=== PATIENT | female | born 1965 | race Caucasian/White ===

== ENCOUNTER 2018-01-05 06:52 | Emergency (ER) | payer OTHER ==
[~2018-01-05 06:52] MED LIST changes: -DOXY-179 PO
--- NOTE | 2018-01-05 07:38 | ER Report ---
History and Physical Time Seen By MD: 07:38 Hx. of Stated Complaint: ems 1 ntg @653 4 baby asa @652 labs @652 chest pain for 6 hours. woke up with it. centers under left breast and moves up to left shoulder HPI/ROS 52-year-old female with no significant medical problems presents to the emergency department with onset of left sided chest pain that started at 0200 today. The pain awoke her from sleep. She also reports a cough over the past 1- 2 weeks. She has been busy getting ready for her daughter's recent wetting. She denies fever chills. The pain is worse when she moves or takes a deep breath. She has never had any cardiac problems or chest pain in the past. He does have a family history of her mom having a PE. She is unable to go back to sleep last night, so has been walking around trying to wean herself of the chest pain for a few hours. She was given aspirin and nitroglycerin spray by the paramedics in route. She is feeling somewhat better after that treatment. No other complaints. Remainder of the 14 system rev: Yes Allergies: Coded Allergies: oxaprozin (Unverified Allergy, Mild, RASH, 01/05/18) Sulfa (Sulfonamide Antibiotics) (Verified Allergy, Unknown, FLU LIKE SYMPTOMS, 01/05/18) Uncoded Allergies: SEASONAL ALLERGIES (Allergy, Mild, NASAL SYMPTOMS, 02/14/14) Home Meds Active Scripts Pantoprazole Sodium (PANTOPRAZOLE SODIUM) 20 Mg Tablet.dr, 1 TAB PO QDAY, #90 TAB.SR 6 Refills Prov:LATRICE HAYDEN MD 12/19/16 Ibuprofen (IBUPROFEN) 800 Mg Tablet, 1 TAB PO Q8H for PAIN, #30 TAB 0 Refills Prov:LITTLE MUNIZ MD 02/16/14 Reported Medications Fexofenadine Hcl/Pseudoephedr (ED-D 24 HOUR TABLET) 1 Each Tabsr, 1 TAB PO QDAY 02/14/14 Calcium Carbonate (CALCIUM) 500 Mg Tablet, 500 MG PO 05/04/13 Multivitamin (DAILY VITAMIN) 1 Each Tablet, 1 EACH PO 05/04/13 Levothyroxine Sodium (LEVOTHYROXINE SODIUM) 50 Mcg Tablet, 50 MCG PO QDAY 05/04/13 Discontinued Reported Medications Krill Oil (KRILL OIL) 500 Mg Capsule, 500 MG PO DAILY, CAPSULE 02/14/14 Red Yeast Rice (RED YEAST RICE) 600 Mg Tablet, 600 MG PO 06/01/13 [place]-3 Fatty Acids (FISH OIL) 300 Mg Capsule, 300 MG PO, CAPSULE 05/04/13 Discontinued Scripts Hydromorphone Hcl (DILAUDID) 2 Mg Tablet, 2 MG PO Q2-4H for PAIN, #30 0 Refills Prov:LITTLE MUNIZ MD 02/16/14 Reviewed Nurses Notes: Yes Old Medical Records Reviewed: Yes Hx Smoking: No Smoking Status: Never Smoker Exposure to Second Hand Smoke?: No Hx Substance Use Disorder: No Hx Alcohol Use: No Constitutional Vital Sign - Last 24 Hours 01/05/18 01/05/18 01/05/18 01/05/18 06:52 06:57 07:01 07:07 Temp 99.1 Pulse ??? 86 85 Resp 18 13 B/P (MAP) 142/98 142/98 (113) Pulse Ox 95 96 O2 Delivery Nasal Cannula 01/05/18 01/05/18 01/05/18 01/05/18 07:19 07:22 07:30 07:37 Pulse 80 79 Resp 8 10 B/P (MAP) 136/96 (109) Pulse Ox 97 97 O2 Flow Rate 2.0 01/05/18 01/05/18 01/05/18 01/05/18 07:52 08:00 08:07 08:12 Pulse 74 75 76 Resp 19 13 15 B/P (MAP) 146/101 (116) Pulse Ox 97 96 96 01/05/18 01/05/18 01/05/18 01/05/18 08:27 08:30 08:42 08:57 Pulse 73 ??? 67 Resp 12 14 B/P (MAP) 149/94 (112) 152/102 (119) Pulse Ox 94 97 99 01/05/18 01/05/18 01/05/18 01/05/18 09:00 09:12 09:27 09:30 Pulse 68 68 Resp 15 20 B/P (MAP) ???/??? (1665) ???/??? (1665) Pulse Ox 98 99 01/05/18 01/05/18 09:42 09:57 Pulse 78 72 Resp 18 24 Pulse Ox 99 98 Physical Exam General Appearance: The patient is alert, has no immediate need for airway protection and no current signs of toxicity. Eyes: Pupils equal and round no injection. Respiratory: Chest is TTP at the left lower anterior chest which reproduces the symptoms, lungs are clear to auscultation. Cardiac: regular rate and rhythm Gastrointestinal: Abdomen is soft and non tender, no masses, bowel sounds normal. Neck: Neck is supple and non tender. Extremities have full range of motion and are non tender. Skin: No rashes or lesions. DIFFERENTIAL DIAGNOSIS: After history and physical exam differential diagnosis was considered for chest pain including but not limited to myocardial ischemia, pericarditis pulmonary embolus, chest wall pain, pleural inflammation and pulmonary infectious causes. Medical Decision Making Data Points Result Diagram: 01/05/18 0655 01/05/18 0655 Laboratory Hematology Test 01/05/18 06:55 01/05/18 09:05 Red Blood Count 4.93 M/uL (4.17-5.56) Mean Corpuscular Volume 101.3 fL (80.0-96.0) Mean Corpuscular Hemoglobin 35.4 pg (26.0-33.0) Mean Corpuscular Hemoglobin Concent 35.0 g/dL (32.0-36.0) Red Cell Distribution Width 13.7 % (11.5-14.5) Mean Platelet Volume 7.1 fL (7.2-11.1) Neutrophils (%) (Auto) 49.9 % (39.4-72.5) Lymphocytes (%) (Auto) 38.3 % (17.6-49.6) Monocytes (%) (Auto) 9.0 % (4.1-12.4) Eosinophils (%) (Auto) 2.0 % (0.4-6.7) Basophils (%) (Auto) 0.8 % (0.3-1.4) Nucleated RBC Relative Count (auto) 0.2 /100WBC Neutrophils # (Auto) 2.3 K/uL (2.0-7.4) Lymphocytes # (Auto) 1.7 K/uL (1.3-3.6) Monocytes # (Auto) 0.4 K/uL (0.3-1.0) Eosinophils # (Auto) 0.1 K/uL (0.0-0.5) Basophils # (Auto) 0.0 K/uL (0.0-0.1) Nucleated RBC Absolute Count (auto) 0.01 K/uL Peripheral Blood Smear No Y/N D-Dimer Quantitative (PE/DVT) 2.44 ug/ml (0-0.50) Sodium Level 144 mmol/L (137-145) Potassium Level 3.4 mmol/L (3.5-5.0) Chloride Level 105 mmol/L (98-107) Carbon Dioxide Level 21 mmol/L (22-31) Blood Urea Nitrogen 6 mg/dl (7-18) Creatinine 0.80 mg/dl (0.52-1.04) Glomerular Filtration Rate Calc > 60.0 Random Glucose 155 mg/dl (75-110) Calcium Level 9.5 mg/dl (8.4-10.2) Total Bilirubin 0.7 mg/dl (0.2-1.3) Aspartate Amino Transf (AST/SGOT) 82 U/L (0-35) Alanine Aminotransferase (ALT/SGPT) 74 U/L (0-56) Alkaline Phosphatase 117 U/L (0-126) Total Protein 8.1 g/dl (6.3-8.2) Albumin 4.7 g/dl (3.5-5.0) Troponin I < 0.012 ng/ml Chemistry Test 01/05/18 06:55 01/05/18 09:05 White Blood Count 4.5 k/uL (4.5-11.0) Red Blood Count 4.93 M/uL (4.17-5.56) Hemoglobin 17.5 g/dL (12.0-16.0) Hematocrit 49.9 % (34.0-47.0) Mean Corpuscular Volume 101.3 fL (80.0-96.0) Mean Corpuscular Hemoglobin 35.4 pg (26.0-33.0) Mean Corpuscular Hemoglobin Concent 35.0 g/dL (32.0-36.0) Red Cell Distribution Width 13.7 % (11.5-14.5) Platelet Count 170 K/uL (150-450) Mean Platelet Volume 7.1 fL (7.2-11.1) Neutrophils (%) (Auto) 49.9 % (39.4-72.5) Lymphocytes (%) (Auto) 38.3 % (17.6-49.6) Monocytes (%) (Auto) 9.0 % (4.1-12.4) Eosinophils (%) (Auto) 2.0 % (0.4-6.7) Basophils (%) (Auto) 0.8 % (0.3-1.4) Nucleated RBC Relative Count (auto) 0.2 /100WBC Neutrophils # (Auto) 2.3 K/uL (2.0-7.4) Lymphocytes # (Auto) 1.7 K/uL (1.3-3.6) Monocytes # (Auto) 0.4 K/uL (0.3-1.0) Eosinophils # (Auto) 0.1 K/uL (0.0-0.5) Basophils # (Auto) 0.0 K/uL (0.0-0.1) Nucleated RBC Absolute Count (auto) 0.01 K/uL Peripheral Blood Smear No Y/N D-Dimer Quantitative (PE/DVT) 2.44 ug/ml (0-0.50) Glomerular Filtration Rate Calc > 60.0 Calcium Level 9.5 mg/dl (8.4-10.2) Total Bilirubin 0.7 mg/dl (0.2-1.3) Aspartate Amino Transf (AST/SGOT) 82 U/L (0-35) Alanine Aminotransferase (ALT/SGPT) 74 U/L (0-56) Alkaline Phosphatase 117 U/L (0-126) Total Protein 8.1 g/dl (6.3-8.2) Albumin 4.7 g/dl (3.5-5.0) Troponin I < 0.012 ng/ml Coagulation Test 01/05/18 06:55 D-Dimer Quantitative (PE/DVT) 2.44 ug/ml EKG/Imaging EKG Interpretation 12 lead EKG: Rhythm: normal sinus rhythm [place]: Normal QRS: normal ST segments: Nonspecific T wave flattening Monitor Interpretation: Normal Sinus Rhythm Imaging Results: CTA scan of the chest was obtained. The results of the study are PE, but possible left lower lobe pneumonia. The study was read by the radiologist. I viewed the images myself on the PACS system. ED Course/Re-evaluation ED Course Chest pain since early this morning with 2 normal tried to approximately 3 hours apart. Also with a normal EKG. Elevated D dimer, so a CTA of the chest was obtained. There is no PE, but evidence of a possible left lower lobe pneumonia. This is consistent with her pleuritic pain at the left lower anterior chest. She also states that she has had a cough over the past 1-2 weeks but getting ready for her daughter's wedding. I do not think this is cardiac chest pain. I think it's consistent with community-acquired pneumonia. I explained this rationale to the patient as well. She did improve with Toradol. She was given 1 dose of doxycycline in the emergency department, and I will give her prescription for the rest. She will return to emergency department if her symptoms worsen, and otherwise follow-up with her primary care physician. She will take NSAIDs for pain. Decision to Disposition Date: Jan 05, 2018 Decision to Disposition Time: 11:21 Depart Departure Latest Vital Signs Vital Signs Date Time Temp Pulse Resp B/P (MAP) Pulse Ox O2 Delivery O2 Flow Rate FiO2 01/05/18 09:57 72 24 98 01/05/18 09:30 ???/??? (1665) 01/05/18 07:19 2.0 01/05/18 06:57 99.1 Nasal Cannula Impression: Primary Impression: Community acquired pneumonia Condition: Improved Disposition: HOME OR SELF-CARE Referrals: LITTLE MUNIZ MD (PCP) New Scripts Doxycycline Hyclate (DOXYCYCLINE HYCLATE) 100 Mg Tablet 100 MG PO BID for 10 Days, #20 Prov: MICHELLE YARBROUGH MD 01/05/18 Patient Instructions: Community Acquired Pneumonia (ED) Problem Qualifiers Primary Impression: Community acquired pneumonia Laterality: left Lung location: lower lobe of lung Qualified Codes: J18.1 - Lobar pneumonia, unspecified organism MICHELLE YARBROUGH MD Jan 05, 2018 07:38
[2018-01-05] MEDS ORDERED: NS(*) 0.9% 1000 ML BAG 1,000 ML IV ONE (07:40)
[2018-01-05] MEDS ORDERED: KETOROLAC 30 MG/ML VIAL IVP ONE (07:40)
[2018-01-05 07:58] LABS: PLATELET COUNT, AUTOMATED 170 K/uL (150-450)
--- NOTE | 2018-01-05 08:00 | EKG ---
FACILITY: [facility] PATIENT NAME: ANKITA LAGUERRE : [id number] MR: [id number] V: [id number] EXAM DATE: ORDERING PHYSICIAN: MICHELLE YARBROUGH TECHNOLOGIST: WILI Vieyra Reason : CARDIAC PAIN Blood Pressure : / mmHG Vent. Rate : 082 BPM Atrial Rate : 082 BPM P-R Int : 148 ms QRS Dur : 072 ms QT Int : 400 ms P-R-T Axes : 030 091 022 degrees QTc Int : 467 ms Sinus rhythm Rightward axis Decreased R wave progression anteriorly Artifact in multiple leads - repeat if needed No previous ECGs available Confirmed by HAVEN STERLING ([id number]) on 01/05/2018 10:12:09 AM Referred By: Confirmed By:HAVNE STERLING
--- NOTE | 2018-01-05 08:04 | RADIOLOGY IMAGING REPORT ---
FACILITY: [facility] PATIENT NAME: Trang Gambino : 1965 MR: [id number] V: [id number] EXAM DATE: ORDERING PHYSICIAN: MICHELLE YARBROUGH TECHNOLOGIST: Location: [facility] Patient: Trang Gambino : 1965 Visit/Account:[id number] Date of Sevice: 01/05/2018 PORTABLE CHEST: Indication: Chest pain. Technique: A single frontal film was obtained. Comparison: None. Skeletal and soft tissue structures: Intact and unremarkable. Heart and mediastinum: Within normal limits. Lung kaplan: Well-expanded and clear. No focal opacities. No evidence of vascular congestion. Pleural spaces: Unremarkable. Impression: No acute process. Report Dictated By: Adrian Alfredo MD at 01/05/2018 7:59 AM Report E-Signed By: Adrian Alfredo MD at 01/05/2018 8:00 AM WSN:[id number]
[2018-01-05] MEDS ORDERED: IOPAMIDOL 76% 100 ML INFUS BTL 100 ML ONE (08:34)
[2018-01-05] MEDS ORDERED: NS 0.9% 25 ML BAG 50 ML ONE (08:34)
--- NOTE | 2018-01-05 09:32 | RADIOLOGY IMAGING REPORT ---
FACILITY: [facility] PATIENT NAME: Trang Gambino : 1965 MR: [id number] V: [id number] EXAM DATE: ORDERING PHYSICIAN: MICHELLE YARBROUGH TECHNOLOGIST: [facility] Patient: Trang Gambino : 1965 Visit/Account:[id number] Date of Sevice: 01/05/2018 CTA CHEST WW/O CNTR (PULM ANG) HISTORY: pleuritic chest pain elevated dimer TECHNIQUE: CTA chest with intravenous contrast attention to pulmonary arteries. Sagittal, coronal a nd slab 3D MIP coronal reconstructed images were also created for further evaluation and interpretati on. One of the following dose optimization techniques was utilized in the performance of this exam: Autom ated exposure control; adjustment of the mA and/or kV according to the patient's size; or use of an i terative reconstruction technique. Specific details can be referenced in the facility's radiology CT exam operational policy. CONTRAST: 75 mL Isovue-370. COMPARISON: None. FINDINGS: Heart/vessels: Satisfactory opacification of the pulmonary arteries without visualized pulmonary emb olus. Mediastinum: Negative. Lymph nodes: Negative. Lungs/pleura: Subtle heterogeneous groundglass opacities within the dependent lower lobes, likely re lated to atelectasis however cannot completely exclude subtle infectious/inflammatory process. Visualized upper abdomen: Hepatic steatosis. Gallbladder surgically absent. Diverticulosis within th e visualized colon without evidence for diverticulitis. Bones/soft tissues: Negative. IMPRESSION: 1. No acute findings. Negative for pulmonary embolus. 2. Subtle groundglass opacities within the dependent lower lobes which is favored related to atelecta sis however cannot completely exclude mild/early infectious/inflammatory process. Report Dictated By: Lionel Cortés MD at 01/05/2018 9:14 AM Report E-Signed By: Lionel Cortés MD at 01/05/2018 9:27 AM WSN:[id number]
[2018-01-05] MEDS ORDERED: DOXYCYCLINE HYCL 100 MG TAB PO ONE (10:55)
[2018-01-05] MEDS ORDERED: DOXY-179 PO (11:22)
[2018-01-05 11:37] VITALS: BP 134/87
== END 2018-01-05 11:45 | disposition home or self-care (01) ==
LOC: ER 06:56
DX: J18.1 Lobar pneumonia, unspecified organism (principal)
CPT/HCPCS: 36415; 71045; 71275; 84484; 85025; 85379; 93005; 96361; 96374; 99284; J1885; J7030; Q9967; 82040; 82247; 82310; 82374; 82435; 82565; 82947; 84075; 84132; 84155; 84295; 84450; 84460; 84520

== ENCOUNTER → 2018-01-05 | Outpatient (CLI) | payer OTHER ==
[~2018-01-05] MED LIST: AMOX500T10 PO; CALC500T6 PO; DOCU100T13 PO; DOXY-179 PO; FEXO1TAB63 PO; HYDR-385 PO; HYDR2TAB74 PO; IBUP800T37 PO; KRIL500C2 PO; LEVO50TA86 PO; MULT-885 PO; OMEG300C PO; PANT20TA27 PO; PANT40TA65 PO; RED600TA PO; [UNRECOGNIZED DRUG - CODE] PO
== END ==
LOC: AMB 06:41
PROVIDERS: ATTEND Nurse Practitioner
DX: R07.9 Chest pain, unspecified (principal); M25.512 Pain in left shoulder; R53.1 Weakness; R09.02 Hypoxemia
CPT/HCPCS: A0425; A0427

== ENCOUNTER → 2018-03-04 | Outpatient (CLI) | payer OTHER ==
[~2018-03-04] MED LIST changes: +ATOR10TA24 PO; +DOXY-179 PO; +LEVO88TA43 PO
== END ==
LOC: LAB 11:09
PROVIDERS: ATTEND Obstetrics & Gynecology
DX: E03.9 Hypothyroidism, unspecified (principal)
CPT/HCPCS: 36415; 84443

== ENCOUNTER 2018-03-10 00:30 | Outpatient (RCR) | payer OTHER | END 2018-04-14 | LOC: RAD 00:30 → EDSTATUS 14:17 | PROVIDERS: ATTEND Internal Medicine ==

== ENCOUNTER → 2018-03-18 | Outpatient (CLI) | payer OTHER ==
--- NOTE | 2018-03-18 11:43 | RADIOLOGY IMAGING REPORT ---
FACILITY: [facility] [place] PATIENT NAME: Trang Gambino : 1965 MR: [id number] V: [id number] EXAM DATE: ORDERING PHYSICIAN: PEGGY JORDAN TECHNOLOGIST: Location: [facility] [place] Patient: Trang Gambino : 1965 Visit/Account:[id number] Date of Sevice: 03/18/2018 THYROID HISTORY: Hypothyroidism. Synthroid use x15 years COMPARISON: None. FINDINGS: SIZE: Right lobe: 3.8 x 0.7 x 1.1 cm Left lobe: 3.6 x 0.5 x 1 cm Isthmus: 1.4 mm PARENCHYMA: Homogeneous. NODULES: Right lobe: * None discrete. Left lobe: * None discrete. Isthmus: * None discrete. VASCULARITY: Diminished vascularity in both lobes ADDITIONAL FINDINGS: None. IMPRESSION: Small homogeneous appearing thyroid gland without discrete nodules. Diminished vascularity in both lobes REFERENCE: 2015 [place] [employer] Management Guidelines for Adult Patients with Thyroid Nodules and D ifferentiated Thyroid Cancer: The [place] [employer] Guidelines Task Force on Thyroid Nodul es and Differentiated Thyroid Cancer. SONOGRAPHIC PATTERNS: * Benign: Purely cystic nodules (no solid component); estimated risk of malignancy <1 percent; no bi opsy recommended. * Very Low Suspicion: Spongiform or partially cystic nodules without any of the sonographic features described in low, intermediate, or high suspicion patterns; estimated risk of malignancy <3 percent; consider FNA at > 2 cm (Observation without FNA is also a reasonable option). * Low Suspicion: Isoechoic or hyperechoic solid nodule, or partially cystic nodule with eccentric so lid areas, without microcalcification, irregular margin or ETE (extra-thyroidal extension), or taller than wide shape; estimated risk of malignancy 5-10 percent; recommend FNA at >1.5 cm. * Intermediate Suspicion: Hypoechoic solid nodule with smooth margins without microcalcifications, E TE (extra-thyroidal extension), or taller than wide shape; estimated risk of malignancy 10-20 percent ; recommend FNA at > 1 cm. * High Suspicion: Solid hypoechoic nodule or solid hypoechoic component of a partially cystic nodule with one or more of the following features: irregular margins (infiltrative, microlobulated), microc alcifications, taller than wide shape, rim calcifications with small extrusive soft tissue component, evidence of ETE (extra-thyroidal extension); estimated risk of malignancy >70-90 percent; recommend FNA at > 1 cm. NOTES: * Although a sonographically suspicious subcentimeter thyroid nodule without evidence of extrathyroi efren extension or sonographically suspicious lymph nodes may be observed with close sonographic follow -up rather than pursuing immediate FNA, patient age and preference may modify decision-making. A > 50% interval increase in nodule volume and/or development of new suspicious sonographic features are felt to be a valid reasons for potential re-aspiration of a nodule previously shown to have benig n FNA cytology. Report Dictated By: Alejandra Trivedi MD at 03/18/2018 11:39 AM Report E-Signed By: Alejandra Trivedi MD at 03/18/2018 11:40 AM WSN:[email or web address]
--- NOTE | 2018-03-18 11:45 | RADIOLOGY IMAGING REPORT ---
FACILITY: [facility] [place] PATIENT NAME: Trang Gambino : 1965 MR: [id number] V: [id number] EXAM DATE: ORDERING PHYSICIAN: PEGGY JORDAN TECHNOLOGIST: Location: [facility] [place] Patient: Trang Gambino : 1965 Visit/Account:[id number] Date of Sevice: 03/18/2018 LIVER HISTORY: Elevated LFTs COMPARISON: Gallbladder ultrasound May 25, 2013 FINDINGS: Gallbladder: Surgically absent Liver: There is increased echogenicity throughout the liver which can be seen with fatty infiltration or other infiltrative process Common duct: Normal, five mm diameter. Pancreas: Appears heterogeneous partially obscured by bowel gas Right kidney: The kidney appears unremarkable without evidence of hydronephrosis and measures 8.2 cm in length Upper abdominal aorta and IVC: Patent. Ascites: None visualized. IMPRESSION: Postsurgical changes from a cholecystectomy Increased echogenicity throughout the liver which can be seen with fatty infiltration or other infilt rative process Report Dictated By: Alejandra Trivedi MD at 03/18/2018 11:40 AM Report E-Signed By: Alejandra Trivedi MD at 03/18/2018 11:42 AM WSN:[email or web address]
== END ==
LOC: US 01:41
PROVIDERS: ATTEND Family Medicine
DX: K76.0 Fatty (change of) liver, not elsewhere classified (principal); Z90.49 Acquired absence of other specified parts of digestive tract
CPT/HCPCS: 76536; 76705

== ENCOUNTER 2018-03-30 04:14 | Outpatient (RCR) | payer OTHER ==
--- NOTE | 2018-04-02 16:53 | RADIOLOGY IMAGING REPORT ---
FACILITY: [facility] [place] PATIENT NAME: Trang Gambino : 1965 MR: [id number] V: [id number] EXAM DATE: ORDERING PHYSICIAN: DAYO ARGUELLO TECHNOLOGIST: Location: [facility] [place] Patient: Trang Gambino : 1965 Visit/Account:[id number] Date of Sevice: 03/30/2018 GALLIUM WHOLE BODY HISTORY: Evaluate for joint inflammation Additional history: None COMPARISON: None. TECHNIQUE: 5.2 mCi of gallium 67 were administered. Whole body anterior and posterior imaging was pe rformed at 24 and 72 hours. FINDINGS: Normal physiologic activity seen in the liver and osseous structures. There is warm symmetric activi ty seen at the elbows wrists knees and ankles. I do not see focal asymmetric high activity in any of the joints. IMPRESSION: Warm symmetric activity in the appendicular joints is symmetric and likely within physiologic limits. Report Dictated By: Paulino Mijares MD at 04/02/2018 4:44 PM Report E-Signed By: Paulino Mijares MD at 04/02/2018 4:49 PM WSN:[email or web address]
== END 2018-03-30 18:00 | disposition home or self-care (01) ==
LOC: NUC 04:14 → EDSTATUS 15:30 → NUC 18:00
PROVIDERS: ATTEND Internal Medicine
DX: M05.9 Rheumatoid arthritis with rheumatoid factor, unspecified (principal)
CPT/HCPCS: 78802; A9556

== ENCOUNTER → 2018-04-01 | Outpatient (CLI) | payer OTHER ==
--- NOTE | 2018-04-09 15:21 | RADIOLOGY IMAGING REPORT ---
[place] [facility] [place] NAME: ANKITA LAGUERRE : [id number] MR: [id number] V: [id number] EXAM DATE: [id number] ORDERING PHYSICIAN: LITTLE MUNIZ TECHNOLOGIST: Debby Trujillo PROCEDURE:BILATERAL DIGITAL SCREENING MAMMOGRAM WITH CAD ASSISTED INTERPRETATION & 3D TOMOSYNTHESIS COMPARISON:Prior. INDICATIONS:SCREENING FINDINGS: Scattered fibroglandular densities are present in both breasts. Benign appearing asymmetries are scattered bilaterally, unchanged. DIAGNOSTIC CATEGORY 1--NEGATIVE. RECOMMENDATIONS: ROUTINE MAMMOGRAM AND CLINICAL EVALUATION IN 1 YR. IMPRESSION: BIRADS 1: Negative. Dictated by: Akhil Aldana M.D. on 04/01/2018 at 17:20 Transcribed by: XIOMARA on 04/02/2018 at 9:50 Approved by: Leander Negro on 04/09/2018 at 15:20 [facility]
== END ==
LOC: MAMO 01:20
PROVIDERS: ATTEND Obstetrics & Gynecology
DX: Z12.31 Encounter for screening mammogram for malignant neoplasm of breast (principal)
CPT/HCPCS: 77063; 77067